=== PATIENT | female | born 1960 | race African-American/Black ===

== ENCOUNTER 2017-05-25 10:50 | Observation (INO) ==
[2017-05-25] MEDS ORDERED: ALUM/MAG/SIMETH/LIDO VISC 1:1 30 ML BOTTLE PO STA (11:41)
[2017-05-25] MEDS ORDERED: NITROGLYCERIN 2% OINT 1 INCH/GM PACK TOP STA (11:41)
[2017-05-25] MEDS ORDERED: MORPHINE 2 MG/1 ML SYRINGE IV STA (11:41)
[2017-05-25] MEDS ORDERED: ONDANSETRON 4 MG/2 ML VIAL IV STA (11:41)
[2017-05-25] MEDS ORDERED: NITROGLYCERIN 2% OINT 1 INCH/GM PACK TOP ONE (11:45)
[2017-05-25] MEDS ORDERED: MORPHINE 2 MG/1 ML SYRINGE ONE (11:45)
[2017-05-25] MEDS ORDERED: ONDANSETRON 4 MG/2 ML VIAL ONE (11:45)
[2017-05-25] MEDS ORDERED: ALUM/MAG/SIMETH/LIDO VISC 1:1 30 ML BOTTLE PO ONE (11:46)
[2017-05-25 11:51] LABS: Basophils % 0.3 % (0.0-0.8); Eosinophils # 0.1 10*3/uL (0.0-0.87); Eosinophils % 0.9 % (0.00-10.9); Hematocrit 35.4 VOL% (35.7-47.0); Immature Granulocytes % 0.2 %; Immature Granulocytes Absolute 0.02 #; Lymphocytes # 2.7 10*3/uL (1.4-4.0); Lymphocytes % 30.1 % (21.3-54.2); Mean Corpuscular HGB Conc 33.9 GM/DL (32-36); Mean Corpuscular Hemoglobin 27 PG (27-34); Mean Corpuscular Volume 79.9 FL (87-102); Mean Platelet Volume 10.7 FL (9.6-12.0); Monocytes # 0.6 10*3/uL (0.11-0.8); Neutrophils # 5.5 10*3/uL (1.4-7.4); Neutrophils % 61.5 % (38.7-73.9); Platelet Count 242 T/CUMM (130-400); Red Blood Count 4.43 MC/CUMM (3.8-5.5); Red Cell Distribution Width 15.9 % (9.3-17.3); White Blood Count 8.9 T/CUMM (4-12)
[2017-05-25 11:58] LABS: INR 1.1; PT Patient Result 11.6 SECS
[2017-05-25 12:08] LABS: Albumin 3.2 G/DL (3.4-5.0); Bilirubin,Total 0.5 MG/DL (0.2-1.0); Calcium 8.2 MG/DL (8.5-10.1); Magnesium 2.5 MG/DL (1.8-2.4); Osmolality,Calculated 278.4 MOS/KG (273-304); Potassium 3.6 MMOL/L (3.5-5.1); Total Protein 6.4 G/DL (6.4-8.3)
[2017-05-25] MEDS ORDERED: ONDANSETRON 4 MG/2 ML VIAL IV PRN (16:07)
[2017-05-25 19:00] LABS: Troponin I Only < 0.015 NG/ML (0.00-0.045)
[2017-05-26 09:55] LABS: Calcium 8.2 MG/DL (8.5-10.1); Osmolality,Calculated 281.3 MOS/KG (273-304); Potassium 3.6 MMOL/L (3.5-5.1)
[2017-05-26 10:00] LABS: Basophils % 0.3 % (0.0-0.8); Eosinophils # 0.1 10*3/uL (0.0-0.87); Eosinophils % 0.9 % (0.00-10.9); Hematocrit 37.5 VOL% (35.7-47.0); Hemoglobin 12.5 GM/DL (12.0-16.0); Immature Granulocytes % 0.5 %; Immature Granulocytes Absolute 0.04 #; Lymphocytes % 25.7 % (21.3-54.2); Mean Corpuscular HGB Conc 33.3 GM/DL (32-36); Mean Corpuscular Hemoglobin 27 PG (27-34); Mean Corpuscular Volume 79.8 FL (87-102); Monocytes # 0.5 10*3/uL (0.11-0.8); Monocytes % 5.8 % (1.7-12.7); Neutrophils # 5.3 10*3/uL (1.4-7.4); Neutrophils % 66.8 % (38.7-73.9); Platelet Count 219 T/CUMM (130-400); Red Cell Distribution Width 15.9 % (9.3-17.3); White Blood Count 7.9 T/CUMM (4-12)
[2017-05-26] MEDS ORDERED: REGADENOSON 0.4 MG/5 ML SYRINGE IV ONE (10:30)
[2017-05-26] MEDS: PANTOPRAZOLE 40 MG TABLET PO SCH (10:45)
[2017-05-26] MEDS: SIMVASTATIN 40 MG TABLET PO SCH (10:45)
[2017-05-26] MEDS: ATENOLOL 50 MG TABLET PO SCH (10:45)
[2017-05-26] MEDS: ASPIRIN EC 81 MG TABLET PO SCH (10:45)
[2017-05-26] MEDS: FUROSEMIDE 40 MG TABLET PO SCH (10:45)
[2017-05-26 11:20] LABS: Risk Ratio 3.19
[2017-05-26] MEDS ORDERED: POLYETHYLENE GLYCOL POWDER 17 GM PACK PO PRN (15:28)
[2017-05-26] MEDS ORDERED: DOCUSATE SODIUM 100 MG CAPSULE PO PRN (15:28)
[2017-05-26] MEDS ORDERED: MAGNESIUM HYDROXIDE SUSP 30 ML UDCUP PO PRN (15:29)
[2017-05-26] MEDS: LACTULOSE 20 GM/30 ML UDCUP PO SCH (20:51)
[2017-05-27] MEDS ORDERED: ACETAMINOPHEN 325 MG TABLET PO PRN (02:46)
[2017-05-27 08:20] VITALS: BP 130/83
[2017-05-27] MEDS: LACTULOSE 20 GM/30 ML UDCUP PO SCH (08:55)
[2017-05-27] MEDS: SIMVASTATIN 40 MG TABLET PO SCH (08:56)
[2017-05-27] MEDS: ASPIRIN EC 81 MG TABLET PO SCH (08:56)
[2017-05-27] MEDS: ATENOLOL 50 MG TABLET PO SCH (08:56)
[2017-05-27] MEDS: PANTOPRAZOLE 40 MG TABLET PO SCH (08:56)
[2017-05-27] MEDS: FUROSEMIDE 40 MG TABLET PO SCH (08:56)
== END 2017-05-27 10:56 | disposition home or self-care (01) ==
LOC: N.ED 10:50 → N.EDINP 10:50 → N.5E 15:56
PROVIDERS: ADMIT Hospitalist; ATTEND Hospitalist

== ENCOUNTER 2018-12-21 00:29 | Inpatient (IN) ==
[2018-12-21] MEDS ORDERED: LIDOCAINE 1%/EPI INJ 20 ML VIAL INFILTRAT STA (01:20)
[2018-12-21] MEDS ORDERED: LIDOCAINE 1%/EPI INJ 20 ML VIAL ONE (01:21)
[2018-12-21] MEDS ORDERED: hydrOXYzine HCL 25 MG TABLET PO PRN (04:15)
[2018-12-21] MEDS ORDERED: CYCLOBENZAPRINE 10 MG TABLET PO PRN (04:15)
[2018-12-21] MEDS ORDERED: POLYETHYLENE GLYCOL POWDER 17 GM PACK PO PRN (04:15)
[2018-12-21] MEDS: CEFTAROLINE 600 MG in SODIUM CHLORIDE 0.9% 100 ML IV SCH ×2 (06:01→17:44)
[2018-12-21] MEDS: LEVOTHYROXINE 75 MCG TABLET PO SCH (06:05)
[2018-12-21 07:10] LABS: Basophils % 0.2 % (0.0-0.8); Eosinophils # 0.1 10*3/uL (0.0-0.87); Eosinophils % 0.8 % (0.00-10.9); Hematocrit 34.5 VOL% (35.7-47.0); Hemoglobin 11.1 GM/DL (12.0-16.0); Immature Granulocytes % 0.4 %; Immature Granulocytes Absolute 0.04 #; Lymphocytes # 1.3 10*3/uL (1.4-4.0); Lymphocytes % 13.4 % (21.3-54.2); Mean Corpuscular HGB Conc 32.2 GM/DL (32-36); Mean Platelet Volume 10.6 FL (9.6-12.0); Monocytes % 5.9 % (1.7-12.7); Neutrophils % 79.3 % (38.7-73.9); Platelet Count 212 T/CUMM (130-400); Red Blood Count 4.26 MC/CUMM (3.8-5.5); Red Cell Distribution Width 15.8 % (9.3-17.3); White Blood Count 9.8 T/CUMM (4-12)
[2018-12-21 07:44] LABS: Albumin 3.1 G/DL (3.4-5.0); Bilirubin,Total 0.7 MG/DL (0.2-1.0); Calcium 9.1 MG/DL (8.5-10.1); Osmolality,Calculated 280.3 MOS/KG (273-304)
[2018-12-21] MEDS ORDERED: POTASSIUM CHLORIDE 20 MEQ TABLET PO ONE (08:54)
[2018-12-21] MEDS: SIMVASTATIN 40 MG TABLET PO SCH (08:58)
[2018-12-21] MEDS: CETIRIZINE 10 MG TABLET PO SCH (08:58)
[2018-12-21] MEDS: CHOLECALCIFEROL 1,000 UNIT TABLET PO SCH (08:58)
[2018-12-21] MEDS: PANTOPRAZOLE 40 MG TABLET PO SCH (08:58)
[2018-12-21] MEDS: MULTIVITAMIN (CENTRUM) TABLET PO SCH (08:58)
[2018-12-21] MEDS: FUROSEMIDE 40 MG TABLET PO SCH (08:58)
[2018-12-21] MEDS: ATENOLOL 50 MG TABLET PO SCH (08:58)
[2018-12-21] MEDS: ASPIRIN EC 81 MG TABLET PO SCH (08:58)
[2018-12-21] MEDS: CYANOCOBALAMIN 500 MCG TABLET PO SCH (08:58)
[2018-12-21] MEDS: GABAPENTIN 100 MG CAPSULE PO SCH (08:58)
[2018-12-21] MEDS ORDERED: NON-FORMULARY MEDICATION (Omeprazole 20 MG) PO SCH (09:00)
[2018-12-21] MEDS ORDERED: Black Cohosh PO SCH (09:00)
[2018-12-21] MEDS: FLUTICASONE 50 MCG NASAL SPRAY 16 GM BOTTLE BOTH NARES SCH ×2 (10:10→20:50)
[2018-12-21] MEDS ORDERED: LACTATED RINGERS 1,000 ML IV SCH (12:00)
[2018-12-21] MEDS ORDERED: LIDOCAINE 1% 20 ML VIAL ONE (12:50)
[2018-12-21] MEDS ORDERED: ONDANSETRON 4 MG/2 ML VIAL ONE (13:28)
[2018-12-21] MEDS ORDERED: MIDAZOLAM 2 MG/2 ML VIAL ONE (13:28)
[2018-12-21] MEDS ORDERED: PROPOFOL 200 MG/20 ML VIAL IV ONE (13:28)
[2018-12-21] MEDS ORDERED: fentaNYL 100 MCG/2 ML VIAL ONE (13:28)
[2018-12-21] MEDS ORDERED: KETAMINE 500 MG/10 ML VIAL ONE (13:28)
[2018-12-21] MEDS: POTASSIUM CHLORIDE 20 MEQ TABLET PO PRN (19:07)
[2018-12-21] MEDS: NORTRIPTYLINE 25 MG CAPSULE PO SCH (20:51)
[2018-12-21] MEDS: LATANOPROST 0.005% OPH SOLN 2.5 ML BOTTLE BOTH EYES SCH (20:52)
[2018-12-22 05:21] LABS: Basophils % 0.4 % (0.0-0.8); Eosinophils # 0.2 10*3/uL (0.0-0.87); Eosinophils % 2.5 % (0.00-10.9); Hematocrit 34.5 VOL% (35.7-47.0); Immature Granulocytes % 0.4 %; Immature Granulocytes Absolute 0.03 #; Lymphocytes # 1.8 10*3/uL (1.4-4.0); Lymphocytes % 23.2 % (21.3-54.2); Mean Corpuscular HGB Conc 31.9 GM/DL (32-36); Mean Corpuscular Volume 81.9 FL (87-102); Mean Platelet Volume 10.7 FL (9.6-12.0); Monocytes % 6.7 % (1.7-12.7); Neutrophils % 66.8 % (38.7-73.9); Platelet Count 220 T/CUMM (130-400); Red Blood Count 4.21 MC/CUMM (3.8-5.5); Red Cell Distribution Width 15.6 % (9.3-17.3); White Blood Count 7.7 T/CUMM (4-12)
[2018-12-22 05:48] LABS: Calcium 8.8 MG/DL (8.5-10.1); Osmolality,Calculated 283.1 MOS/KG (273-304)
[2018-12-22] MEDS: LEVOTHYROXINE 75 MCG TABLET PO SCH (06:02)
[2018-12-22] MEDS: CEFTAROLINE 600 MG in SODIUM CHLORIDE 0.9% 100 ML IV SCH ×2 (06:02→16:43)
[2018-12-22] MEDS: FUROSEMIDE 40 MG TABLET PO SCH (08:47)
[2018-12-22] MEDS: PANTOPRAZOLE 40 MG TABLET PO SCH (08:47)
[2018-12-22] MEDS: GABAPENTIN 100 MG CAPSULE PO SCH (08:47)
[2018-12-22] MEDS: CYANOCOBALAMIN 500 MCG TABLET PO SCH (08:47)
[2018-12-22] MEDS: CHOLECALCIFEROL 1,000 UNIT TABLET PO SCH (08:47)
[2018-12-22] MEDS: CETIRIZINE 10 MG TABLET PO SCH (08:47)
[2018-12-22] MEDS: MULTIVITAMIN (CENTRUM) TABLET PO SCH (08:47)
[2018-12-22] MEDS: ASPIRIN EC 81 MG TABLET PO SCH (08:47)
[2018-12-22] MEDS: ATENOLOL 50 MG TABLET PO SCH (08:48)
[2018-12-22] MEDS: SIMVASTATIN 40 MG TABLET PO SCH (08:48)
[2018-12-22] MEDS: FLUTICASONE 50 MCG NASAL SPRAY 16 GM BOTTLE BOTH NARES SCH ×2 (08:49→20:40)
[2018-12-22] MEDS: SODIUM HYPOCHLORITE 0.25% IRRIG 473 ML BOTTLE TOP SCH (11:00)
[2018-12-22] MEDS: POTASSIUM CHLORIDE 20 MEQ TABLET PO PRN (16:42)
[2018-12-22] MEDS: NORTRIPTYLINE 25 MG CAPSULE PO SCH (20:40)
[2018-12-22] MEDS: LATANOPROST 0.005% OPH SOLN 2.5 ML BOTTLE BOTH EYES SCH (20:40)
[2018-12-23] MEDS: LEVOTHYROXINE 75 MCG TABLET PO SCH (05:19)
[2018-12-23] MEDS: CEFTAROLINE 600 MG in SODIUM CHLORIDE 0.9% 100 ML IV SCH (05:21)
[2018-12-23] MEDS: ASPIRIN EC 81 MG TABLET PO SCH (09:31)
[2018-12-23] MEDS: PANTOPRAZOLE 40 MG TABLET PO SCH (09:31)
[2018-12-23] MEDS: MULTIVITAMIN (CENTRUM) TABLET PO SCH (09:31)
[2018-12-23] MEDS: FUROSEMIDE 40 MG TABLET PO SCH (09:31)
[2018-12-23] MEDS: ATENOLOL 50 MG TABLET PO SCH (09:31)
[2018-12-23] MEDS: CYANOCOBALAMIN 500 MCG TABLET PO SCH (09:31)
[2018-12-23] MEDS: CETIRIZINE 10 MG TABLET PO SCH (09:31)
[2018-12-23] MEDS: SIMVASTATIN 40 MG TABLET PO SCH (09:31)
[2018-12-23] MEDS: GABAPENTIN 100 MG CAPSULE PO SCH (09:31)
[2018-12-23] MEDS: CHOLECALCIFEROL 1,000 UNIT TABLET PO SCH (09:31)
[2018-12-23] MEDS: SODIUM HYPOCHLORITE 0.25% IRRIG 473 ML BOTTLE TOP SCH (12:10)
[2018-12-23] MEDS: CLINDAMYCIN 300 MG CAPSULE PO SCH ×3 (12:54→20:59)
[2018-12-23] MEDS: FLUTICASONE 50 MCG NASAL SPRAY 16 GM BOTTLE BOTH NARES SCH ×2 (12:54→21:00)
[2018-12-23] MEDS: NORTRIPTYLINE 25 MG CAPSULE PO SCH (20:59)
[2018-12-23] MEDS: LATANOPROST 0.005% OPH SOLN 2.5 ML BOTTLE BOTH EYES SCH (21:08)
[2018-12-24] MEDS: LEVOTHYROXINE 75 MCG TABLET PO SCH (06:05)
[2018-12-24] MEDS: PANTOPRAZOLE 40 MG TABLET PO SCH (09:07)
[2018-12-24] MEDS: FUROSEMIDE 40 MG TABLET PO SCH (09:07)
[2018-12-24] MEDS: ASPIRIN EC 81 MG TABLET PO SCH (09:07)
[2018-12-24] MEDS: SODIUM HYPOCHLORITE 0.25% IRRIG 473 ML BOTTLE TOP SCH (09:07)
[2018-12-24] MEDS: CETIRIZINE 10 MG TABLET PO SCH (09:07)
[2018-12-24] MEDS: CLINDAMYCIN 300 MG CAPSULE PO SCH ×2 (09:07→12:22)
[2018-12-24] MEDS: MULTIVITAMIN (CENTRUM) TABLET PO SCH (09:07)
[2018-12-24] MEDS: GABAPENTIN 100 MG CAPSULE PO SCH (09:07)
[2018-12-24] MEDS: CHOLECALCIFEROL 1,000 UNIT TABLET PO SCH (09:07)
[2018-12-24] MEDS: FLUTICASONE 50 MCG NASAL SPRAY 16 GM BOTTLE BOTH NARES SCH (09:07)
[2018-12-24] MEDS: ATENOLOL 50 MG TABLET PO SCH (09:07)
[2018-12-24] MEDS: CYANOCOBALAMIN 500 MCG TABLET PO SCH (09:07)
[2018-12-24] MEDS: SIMVASTATIN 40 MG TABLET PO SCH (09:07)
[2018-12-24 11:34] VITALS: BP 130/78
== END 2018-12-24 16:39 | disposition home health service (06) | DRG 571 ==
LOC: EDUNIT# → N.ED 00:29 → N.EDINP 00:29 → N.3E 04:27 → SUATTDRO 12-22 14:58
PROVIDERS: ADMIT Internal Medicine; ATTEND Hospitalist